=== PATIENT | female | born 1975 | race Caucasian/White ===

== ENCOUNTER 2016-08-16 13:47 | Emergency (ER) | payer BC, OTHER ==
[2016-08-16 14:15] VITALS: BP 135/75
--- NOTE | 2016-08-16 14:19 | UC ---
Upper Extremity HPI - HPI Summary HPI Summary: patient was playing the [employer] keyboard at work, she hit her hand against a lever, swelling and bruising instantly on the right hand middle finger pip joint. flx limited due to "stiffness" - History of Current Complaint Stated Complaint: FINGER INJURY Time Seen by Provider: 08/16/16 14:11 Hx Obtained From: Patient Hx Last Menstrual Period: 04/24/14 ?: No Onset/Duration: Sudden Onset, Lasting Hours Severity Initially: Mild Severity Currently: Mild Pain Intensity: 3 Pain Scale Used: 0-10 Numeric Location Of Pain: Is Discrete @ - middle right pip Character: Dull, Stiffness Aggravating Factor(s): Flexion Alleviating Factor(s): Nothing Associated Signs And Symptoms: Positive: Swelling, Bruising - Allergies/Home Medications Allergies/Adverse Reactions: Allergies Allergy/AdvReac Type Severity Reaction Status Date / Time No Known Allergies Allergy Verified 05/08/14 18:48 PMH/Surg Hx/FS Hx/Imm Hx Previously Healthy: Yes Endocrine History Of: Denies: Diabetes, Thyroid Disease Cardiovascular History Of: Denies: Cardiac Disorders, Hypertension Respiratory History Of: Reports: Asthma Denies: COPD GI/ History Of: Denies: Ulcer - Surgical History Surgery Procedure, Year, and Place: spinal fusion 1992 - Family History Known Family History: Negative: Cardiac Disease, Hypertension - Social History Alcohol Use: None Substance Use Type: None Smoking Status (MU): Never Smoked Tobacco Review of Systems Constitutional: Negative Skin: Bruising Eyes: Negative ENT: Negative Respiratory: Negative Cardiovascular: Negative Gastrointestinal: Negative Genitourinary: Negative Motor: Negative Neurovascular: Negative Musculoskeletal: Arthralgia, Decreased ROM, Edema Neurological: Negative Psychological: Negative All Other Systems Reviewed And Are Negative: Yes Physical Exam Triage Information Reviewed: Yes Appearance: Well-Appearing, Well-Nourished, Pain Distress Vital Signs Reviewed: Yes Eye Exam: Normal Eyes: Positive: Conjunctiva Clear ENT Exam: Normal ENT: Positive: Hearing grossly normal, Pharynx normal, TMs normal Dental Exam: Normal Neck exam: Normal Neck: Positive: Supple, Nontender, No Lymphadenopathy Respiratory Exam: Normal Respiratory: Positive: Chest non-tender, Lungs clear, Normal breath sounds Cardiovascular Exam: Normal Cardiovascular: Positive: RRR, No Murmur, Pulses Normal Abdominal Exam: Normal Abdomen Description: Positive: Nontender, No Organomegaly, Soft Bowel Sounds: Positive: Present Musculoskeletal Exam: Normal Musculoskeletal: Positive: Strength Intact, ROM Limited @ - limited flexion, Edema @ - and bruising over the PIP, no crepitus or deformity, flucutant swelling over the joint Neurological Exam: Normal Neurological: Positive: Alert, Muscle Tone Normal Psychological Exam: Normal Skin Exam: Normal Upper Extremity Course/Dx - Course Course Of Treatment: hx obtained, exam performed, xray obtained, talked with patient about the unliklyhood of a fracture but patient requested it be xray'd. xray was neg. finger splinted and recommend warm soaks and tylenol for pain. - Differential Dx/Diagnosis Differential Diagnosis/HQI/PQRI: Contusion, Hematoma, Strain, Sprain Provider Diagnoses: ecchymosis in right middle finger Discharge - Discharge Plan Condition: Stable Disposition: HOME Patient Education Materials: Ecchymosis (ED) Additional Instructions: use the finger splint for comfort, warm hand soaks to aid in circulation.
--- NOTE | 2016-08-16 14:37 | RAD ---
Indication: Right middle finger injury. Decreased range of motion. 3 views of the right middle finger demonstrates no fracture. Soft tissue swelling is noted at the dorsal aspect of the proximal interphalangeal joint. IMPRESSION: No fracture of the right middle finger is noted. Soft tissue swelling at the dorsal proximal interphalangeal joint.
== END 2016-08-16 14:55 | disposition home or self-care (01) ==
LOC: UCEAST 13:47
DX: S60.031A Contusion of right middle finger without damage to nail, initial encounter (principal); W22.8XXA Striking against or struck by other objects, initial encounter; Y93.J3 Activity, string instrument playing; Y92.9 Unspecified place or not applicable; Y99.0 Civilian activity done for income or pay
CPT/HCPCS: 73140; 99202; G0463